=== PATIENT | male | born 1955 | race Caucasian/White ===

== ENCOUNTER 2017-09-17 16:12 | Inpatient (IN) ==
[2017-09-17] MEDS ORDERED: KETOROLAC 30 MG/1 ML VIAL IV STA (17:30)
[2017-09-17] MEDS ORDERED: KETOROLAC 30 MG/1 ML VIAL ONE (17:30)
[2017-09-17] MEDS ORDERED: ONDANSETRON 4 MG/2 ML VIAL IV PRN (17:56)
[2017-09-17] MEDS ORDERED: ACETAMINOPHEN 325 MG TABLET PO PRN (17:56)
[2017-09-17] MEDS ORDERED: KETOROLAC 15 MG/1 ML VIAL IV PRN (17:56)
[2017-09-17 17:58] LABS: Basophils % 0.1 % (0.0-0.8); Hematocrit 35.2 VOL% (42.0-52.0); Hemoglobin 12.5 GM/DL (14.0-18.0); Immature Granulocytes % 0.6 %; Immature Granulocytes Absolute 0.09 #; Lymphocytes # 0.7 10*3/uL (1.4-4.0); Lymphocytes % 4.8 % (21.2-54.2); Mean Corpuscular HGB Conc 35.5 GM/DL (32-36); Mean Corpuscular Hemoglobin 32 PG (27-34); Mean Corpuscular Volume 90.5 FL (87-102); Mean Platelet Volume 10.2 FL (9.6-12.0); Monocytes % 6.9 % (1.7-12.7); Neutrophils # 12.8 10*3/uL (1.4-7.4); Neutrophils % 87.6 % (38.7-73.9); Platelet Count 270 T/CUMM (130-400); Red Blood Count 3.89 MC/CUMM (3.8-5.5); Red Cell Distribution Width 13.3 % (9.3-17.3); White Blood Count 14.7 T/CUMM (4-12)
[2017-09-17] MEDS: INSULIN REGULAR 100 UNIT/ML SUBCUT SCH (21:44)
[2017-09-17] MEDS: ALBUTEROL 2.5 MG/3 ML NEB RESP TX SCH (23:48)
[2017-09-18] MEDS: ALBUTEROL 2.5 MG/3 ML NEB RESP TX SCH ×2 (07:41→07:47)
[2017-09-18] MEDS ORDERED: metFORMIN 500 MG TABLET PO SCH (08:00)
[2017-09-18] MEDS: INSULIN REGULAR 100 UNIT/ML SUBCUT SCH ×2 (08:37→11:24)
[2017-09-18] MEDS ORDERED: PANTOPRAZOLE 40 MG TABLET PO SCH (09:00)
[2017-09-18] MEDS ORDERED: ATENOLOL 25 MG TABLET PO SCH (09:00)
[2017-09-18 11:05] VITALS: BP 164/82
== END 2017-09-18 12:48 | disposition home or self-care (01) | DRG 185 ==
LOC: N.ED 16:12 → N.EDINP 17:56 → N.3E 18:34
PROVIDERS: ADMIT Surgery; ATTEND Surgery